=== PATIENT | female | born 1990 | race African-American/Black ===

== ENCOUNTER 2020-12-05 08:54 | Emergency (ER) | payer MEDICAID ==
[~2020-12-05] VITALS: Ht 175.3 cm; Wt 104.0 kg
[2020-12-05] MEDS ORDERED: CLIN300C12 MT (10:08)
[2020-12-05 10:22] VITALS: BP 127/87
== END 2020-12-05 10:35 | disposition home or self-care (01) ==
LOC: ER 08:54
DX: N75.1 Abscess of Bartholin's gland (principal)
CPT/HCPCS: 56420; 99284; Z7610; 10060; 99283